=== PATIENT | male | born 1980 | race Caucasian/White ===

== ENCOUNTER 2018-10-21 21:42 | Emergency (ER) | payer SELFPAY | END 2018-10-21 22:51 | disposition home or self-care (01) | LOC: JERFT 21:42 ==

== ENCOUNTER 2020-08-23 18:14 | Emergency (ER) | payer OTHER ==
[2020-08-23 18:24] VITALS: BP 134/83; PULSE 96; TEMP 98; BMI 35.2
[2020-08-23] MEDS ORDERED: ACETAMINOPHEN 500 MG TABLET (FP) PO ONE (18:48)
[2020-08-23] MEDS ORDERED: DEXAMETHASONE LIQUID 0.5 MG/5 ML PO ONE (18:49)
[2020-08-23] MEDS ORDERED: ACETAMINOPHEN 500 MG TABLET (FP) ONE (18:50)
[2020-08-23] MEDS ORDERED: DEXAMETHASONE SOD PHOSPHATE 10 MG/1 ML VIAL ONE (18:50)
== END 2020-08-23 19:04 | disposition home or self-care (01) ==
LOC: JER 18:14
DX: U07.1 COVID-19 (principal); J02.9 Acute pharyngitis, unspecified
CPT/HCPCS: 87880; 99283-25; C9803; U0003; U0005